=== PATIENT | female | born 1950 | race Caucasian/White ===

== ENCOUNTER 2017-03-26 11:30 | Emergency (ER) | payer BC, OTHER ==
[~2017-03-26] VITALS: Ht 162.6 cm; Wt 63.5 kg
--- NOTE | ~2017-03-26 | EKG ---
[address] [place] [address] ELECTROCARDIOGRAM REPORT Name: ROOSEVELT GTZ Room #: DEP COLTON Phillips#: [id number] Admission: 03/26/17 Attend Phys: Discharge: 03/26/17 Date of : 54 Report #: [id number] THIS REPORT FOR: //name// [facility] ED Test Date: 2017-03-26 Test Time: 13:59:22 Pat Name: ROOSEVELT GTZ Department: Room: Gender: F Manager Media Relations: Azra CHINCHILLA : 1950 Requested By: Seng Howard Order Number: [id number] MD: Larry Street Measurements Intervals [place] Rate: 71 P: 58 FL: 165 QRS: 41 QRSD: 103 T: 3 QT: 398 QTc: 433 Interpretive Statements Sinus rhythm No significant abnormality No previous ECG available for comparison Electronically Signed On 03-28-2017 9:12:[address] [email or web address] <ELECTRONICALLY SIGNED> By: Larry Street MD, [facility] 03/28/[id number] MD, FACC /EPI
[2017-03-26] MEDS ORDERED: VITAMINC500 PO (11:59)
[2017-03-26] MEDS ORDERED: FISH OIL 1,001000 M2 PO (11:59)
[2017-03-26] MEDS ORDERED: UNICOMPLEX M TA1 TA1 PO (11:59)
[2017-03-26 12:26] LABS: HEMATOCRIT 38.8 % (37.0-47.0); HEMOGLOBIN 13.5 gm/dL (12.0-15.0); MCHC 34.8 g/dL (28.0-37.0); MCV 89.2 fL (80.0-100.0); PLATELET COUNT 240 thou/uL (150-400); RBC 4.35 mil/uL (4.20-5.00); RDW 12.6 % (10.5-14.5); WBC 8.3 thou/uL (4.0-11.0)
[2017-03-26 12:31] LABS: MANUAL DIFF YES
[2017-03-26 12:40] LABS: ANION GAP 8 mmol/L (7-16); BUN 11 mg/dL (7-18); CHLORIDE 101 mmol/L (98-107); CO2 28 mmol/L (21-32); CREATININE 0.7 mg/dL (0.6-1.0); GLUCOSE 123 mg/dL (74-106); POTASSIUM 4.2 mmol/L (3.5-5.1); SODIUM 137 mmol/L (136-145)
[2017-03-26 12:51] LABS: ALKALINE PHOSPHATASE 80 U/L (46-116); DIRECT BILIRUBIN < 0.1 mg/dL (<0.1-0.3); NT-PRO BRAIN NAT PEPTIDE 82 pg/mL (<300); SGOT 17 U/L (15-37); SGPT 22 U/L (30-65); TOTAL BILIRUBIN 0.3 mg/dL (<0.1-1.0); TOTAL PROTEIN 7.4 g/dL (6.4-8.2); TROPONIN-I < 0.04 ng/mL (<0.04-0.07)
[2017-03-26 13:02] LABS: ABSOLUTE NEUTROPHILS 6.6 thou/uL (1.4-8.2); ANISOCYTOSIS 2+; TOTAL CELL COUNT 100
[2017-03-26 14:36] LABS: URINE BILIRUBIN NEGATIVE (Negative); URINE BLOOD NEGATIVE (Negative); URINE COLOR YELLOW; URINE GLUCOSE-RANDOM* NEGATIVE (Negative); URINE KETONES NEGATIVE (Negative); URINE NITRITE NEGATIVE (Negative); URINE PROTEIN (DIPSTICK) NEGATIVE (Negative); URINE SPECIFIC GRAVITY <= 1.005 (1.003-1.035); URINE UROBILINOGEN 0.2 E.U./dl (0.2-1.0)
[2017-03-26 15:24] VITALS: BP 116/52
== END 2017-03-26 15:07 | disposition home or self-care (01) ==
LOC: ER 11:30
PROVIDERS: Nurse Practitioner
DX: R53.1 Weakness (principal); F10.99 Alcohol use, unspecified with unspecified alcohol-induced disorder; Z96.641 Presence of right artificial hip joint